=== PATIENT | female | born 1935 | race Hispanic/Latino ===

== ENCOUNTER 2022-08-04 12:48 | Emergency (ER) | payer MEDICARE ==
[~2022-08-04] VITALS: Ht 154.9 cm; Wt 46.2 kg
[2022-08-04 13:02] VITALS: BP 163/77
[2022-08-04 13:49] LABS: HEMOGLOBIN 10.5 g/dl (12.0-16.0); IMMATURE GRANULOCYTES 0.1 % (0.0-5.0); MEAN CELL VOLUME 73.2 fL CALC (80.0-100.0); MEAN CORPUSCULAR HGB 23.3 pG CALC (26.0-32.0); MEAN CORPUSCULAR HGB CONC 31.8 g/dL CAL (32.0-36.0); NEUT# 6.03 thou/uL (2.00-7.15); RED BLOOD COUNT 4.51 mill/uL (4.20-5.60); RED CELL DISTRI WIDTH 16.3 % (11.5-15.5)
[2022-08-04 14:00] VITALS: BP 157/72
[2022-08-04 14:11] LABS: ALBUMIN 4.3 g/dL (3.2-5.0); ALKALINE PHOSPHATASE 123 u/l (38-126); ANION GAP 16 (6-22 (CALC)); BILIRUBIN, TOTAL 0.3 mg/dL (0.0-1.4); BUN 16 mg/dL (8-23); BUN/CREATININE RATIO 22 (12-20 (CALC)); CARBON DIOXIDE 20 mmol/l (22-30); CHLORIDE 103 mmol/l (95-108); CREATININE 0.7 mg/dL (0.5-1.0); GFR FOR AFR.AMER. > 60 ML/MIN (>=60 (CALC)); GFR OTHER RACES > 60 ML/MIN (>=60 (CALC)); POTASSIUM 4.5 mmol/l (3.5-5.1); SGOT/AST 50 u/l (9-36); SODIUM 135 mmol/l (137-146); TOTAL PROTEIN 7.8 g/dL (6.3-8.2)
[2022-08-04 14:30] VITALS: BP 159/69
[2022-08-04 15:00] VITALS: BP 160/77
[2022-08-04 15:30] VITALS: BP 144/69
[2022-08-04] MEDS ORDERED: TAM75CAP PO (16:29)
[2022-08-04] MEDS ORDERED: ZPAK PO (16:29)
[2022-08-04] MEDS ORDERED: MUCINEX600 MG PO (16:29)
[2022-08-04 16:38] VITALS: BP 144/69
== END 2022-08-04 16:51 | disposition home or self-care (01) ==
LOC: ED 12:48
PROVIDERS: Nurse Practitioner
DX: J10.1 Influenza due to other identified influenza virus with other respiratory manifestations (principal); I10 Essential (primary) hypertension; Z20.822 Contact with and (suspected) exposure to COVID-19